=== PATIENT | female | born 1985 | race Caucasian/White ===

== ENCOUNTER → 2023-04-22 08:24 | Outpatient (BNVA) | payer MEDICAID, SELFPAY | PROVIDERS: Family Provider Family Medicine; PCP Family Medicine; Referring Provider Nurse Practitioner Family; Visit Provider Surgery | DX: R10.13 Epigastric pain (principal) | CPT/HCPCS: 99204 ==

== ENCOUNTER 2023-05-16 08:47 | Day surgery (SDC) | payer OTHER, MEDICAID, SELFPAY ==
[2023-05-16 09:08] VITALS: BP 94/59; PULSE 85; RESP 16; TEMP 36.7; O2SAT 100; BMI 21.2
--- NOTE | 2023-05-16 09:19 | ANES.PREANE2 ---
Pre-Anesthetic Assessment Height/Weight: Height 1.5 m Weight 47.627 kg Temp Pulse Resp BP Pulse Ox O2 Del Method 98.0 F 85 16 94/59 100 Room Air 05/16/23 09:08 05/16/23 09:08 05/16/23 09:08 05/16/23 09:08 05/16/23 09:08 05/16/23 09:08 Preop Diagnosis: Epigastric Pain Operation Date: 05/16/23 09:45 Proposed Procedures p EGD 28366, R10.13(Not Applicable) - Cesar Crow DO Familial anesthetic complications: none Last intake: Intake Last Liquid Date 05/15/232349 Last Solid Date 05/15/232349 Social Tobacco (smoked today 10 years 1ppd) and No alcohol denies recreational drug use. Exam alert, oriented x 3, clear to auscultation bilaterally and regular rate & rhythm Airway Submandibular: within normal limits Cervical ROM: within normal limits Mallampati: Class II Dentition: chipped Pulmonary None reported CV/HEM None reported None reported Hepatic None reported GI Gastroesophageal Reflux Disease abdominal pain Metabolic None reported Musc/skel None reported Neuropsych Anxiety Anesthetic Plan ASA status: 2 Anesthesia: MAC Medications/Allergies Home Medications Medication Instructions Recorded Confirmed Last Taken Type ondansetron HCl 4 mg tablet 4 mg PO Q8H PRN Nausea 04/22/23 05/16/23 05/07/23 History pantoprazole 40 mg tablet,delayed 40 mg PO BID 6 weeks #84 tabs 04/22/23 05/16/23 05/14/23 Rx release (Protonix) Allergies Allergy/AdvReac Type Severity Reaction Status Date / Time sulfa Allergy was told Uncoded 05/16/23 09:08 never to take PFSH Anesthesia Family History Mother Acid reflux Social History Smoking and tobacco/nicotine status: current every day tobacco/nicotine user cigarettes Substance/Drug Use: current Substance/Drug use frequency: Special occassions/opportunity only Data Anesthesia Cardiac Studies: No Data to Display
[2023-05-16] MEDS: sodium chloride 0.9% 1,000 ML 30 ML IV (09:29)
[2023-05-16 09:33] LABS: OR HCG Qualitative Urine Negative (Negative)
--- NOTE | 2023-05-16 09:49 | W.PM.OPSUD ---
Surgery/Procedure H&P Update DATE OF PROCEDURE: May 16, 2023 DATE H&P PERFORMED: 04/22/23 H&P UPDATE INFORMATION: I have reviewed H&P completed within last 30 days, I have examined patient prior to procedure and No changes to prior documentation PREOP DIAGNOSIS: Epigastric Pain PLANNED PROCEDURE: Operation Date: 05/16/23 09:45 Proposed Procedures p EGD 11387, R10.13(Not Applicable) - Cesar Crow DO
[2023-05-16 09:59] VITALS: BP 90/56; PULSE 62; RESP 14; TEMP 36.4; O2SAT 100
[2023-05-16 10:10] VITALS: BP 103/73; PULSE 76; RESP 18; O2SAT 100
[2023-05-16 10:19] VITALS: BP 96/63; PULSE 67; RESP 18; O2SAT 100
--- NOTE | 2023-05-16 12:41 | ANE.PACU2 ---
Inpatient post-anesthesia follow up: Airway intact: Yes Vital signs: Temperature 97.5 F Pulse Rate 67 Respiratory Rate 18 Blood Pressure 96/63 Pulse Oximetry 100 Oxygen Delivery Me thod Room Air Oxygen Flow Rate 4 Fraction of Inspir ed Oxygen Hydration adequate: Yes Nausea and vomiting: No Pain level: 2 Mental status: Baseline
== END 2023-05-16 10:27 | disposition home or self-care (01) ==
PROVIDERS: Anesthesiology; Family Provider Family Medicine; PCP Family Medicine; Visit Provider Surgery
PROC: 0DJ08ZZ Inspection of Upper Intestinal Tract, Via Natural or Artificial Opening Endoscopic (ICD-10-PCS; CPT 43235; principal; 2023-05-16 09:45)
DX: R10.13 Epigastric pain (principal); K21.9 Gastro-esophageal reflux disease without esophagitis; F17.210 Nicotine dependence, cigarettes, uncomplicated; K29.50 Unspecified chronic gastritis without bleeding
CPT/HCPCS: 43239; 81025; 84703; 88305; 88342; J2704; J7030

== ENCOUNTER 2023-06-05 07:07 | Outpatient (CLI) | payer OTHER, MEDICAID, SELFPAY ==
--- NOTE | 2023-06-05 07:15 | US_ITS ---
WS: [id number] RIGHT UPPER QUADRANT ULTRASOUND HISTORY: epigastric pain COMPARISON: None available. Liver: 15.5 cm in length. Normal size liver and echogenicity. No bile duct dilatation or mass. Portal Vein: Normal hepatopetal flow with monophasic waveform. Gallbladder: Normally distended gallbladder with no stones or wall thickening. CBD: 0.1 cm Pancreas: Normal size and echogenicity. Right kidney: 10.1 cm in length. Normal size and echogenicity. No hydronephrosis or mass. Aorta and IVC: Unremarkable abdominal aorta and IVC. No ascites. IMPRESSION: Normal RIGHT upper quadrant ultrasound.
== END 2023-06-05 07:08 | disposition home or self-care (01) ==
LOC: RAD 07:07
PROVIDERS: Family Provider Family Medicine; PCP Family Medicine; Visit Provider Surgery
DX: R10.13 Epigastric pain (principal)
CPT/HCPCS: 76705

== ENCOUNTER 2023-07-02 07:52 | Outpatient (CLI) | payer OTHER, MEDICAID, SELFPAY ==
--- NOTE | 2023-07-02 08:00 | NM_ITS ---
WS: [id number] NUCLEAR MEDICINE HIDA SCAN CLINICAL INFORMATION: epigastric pain TECHNIQUE: Following intravenous administration of 7.2 mCi of technetium 99m mebrofenin, images of th e abdomen were obtained over the course of 60 minutes. Next, gallbladder ejection fraction was determ ined by obtaining preprandial and one-hour postprandial images of the gallbladder following oral karl stion of Ensure. COMPARISON: Ultrasound 06/05/2023 FINDINGS: Hepatomegaly. Normal hepatic uptake at 5 minutes. Normal hepatic excretion. Gallbladder is visualized by 15 minutes. Normal common bile duct and small bowel activity. No evidence of acute cholecystitis. Gallbladder ejection fraction 59% within normal limits. No evidence of chronic cholecystitis. IMPRESSION: 1. No evidence of acute or chronic cholecystitis. 2. Gallbladder ejection fraction 59% within normal limits.
== END 2023-07-02 07:53 | disposition home or self-care (01) ==
PROVIDERS: PCP Family Medicine; Visit Provider Surgery
DX: R10.13 Epigastric pain (principal)
CPT/HCPCS: 78227; A9537

== ENCOUNTER → 2024-06-01 11:23 | Outpatient (BNVA) | payer MEDICAID, SELFPAY | PROVIDERS: PCP Family Medicine | DX: M19.012 Primary osteoarthritis, left shoulder (principal) | CPT/HCPCS: 73030 ==

== ENCOUNTER 2024-12-03 18:36 | Emergency (ER) | payer MEDICAID, SELFPAY ==
[2024-12-03 18:41] VITALS: BP 104/68; PULSE 78; RESP 17; TEMP 37.1; O2SAT 97; BMI 23.0
--- NOTE | 2024-12-03 19:20 | ED_ITS ---
HPI - Animal Bite General: Chief Complaint: Animal Bite Stated Complaint: rabies shot Time Seen by Provider: 12/03/24 19:09 Source: patient Mode of arrival: ambulatory Limitations: no limitations History of Present Illness: 31-year-old female states that she has a barn cat that was concerned could have rabies she states that health department has a cat the testing will be back till Friday she states she has had close exposure but has not had any bites denies any injuries. Associated symptoms: Deny chills, fever(s) or headache(s) Related Data Previous Rx's ?Medication ?Instructions ?Recorded ondansetron 8 mg disintegrating 8 mg PO TID PRN nausea and 05/16/23 tablet vomiting #20 tabs cyclobenzaprine 5 mg tablet 5 mg PO TID PRN muscle spa sm #30 06/01/24 tabs Allergies Allergy/AdvReac Type Severity Reaction Status Date / Time sulfa Allergy was told Uncoded 06/01/24 11:20 never to take Review of Systems Const: Denies: fever(s), chills or body aches ENMT: Denies: throat pain or dental pain Card: Denies: chest pain Resp: Denies: dyspnea GI: Denies: abdominal pain, nausea, vomiting or diarrhea Musc: Denies: neck pain or back pain Skin/Breast: Denies: rash Neuro: Denies: headache(s) PFSH ED PFSH: Family History Mother Acid reflux Social History Smoking and tobacco/nicotine status: current every day tobacco/nicotine user cigarettes Substance/Drug Use: current Substance/Drug use frequency: Special occa ssions/opportunity only Physical Exam Const: COMMON NORMALS: no acute distress, patient oriented x3 and healthy appearing HENMT: COMMON NORMALS: normocephalic and atraumatic HEAD & SCALP: normocephalic and atraumatic Eye: COMMON NORMALS: conjunctivae normal CONJUNCTIVA: Yes conjunctivae normal Neck/C-Spine: COMMON NORMALS: full ROM and supple Chest: COMMONS NORMALS: normal inspection of the chest Resp: COMMON NORMALS: normal respiratory effort Cardio: COMMON NORMALS: regular rate RATE: regular rate Extremity: COMMON NORMALS: normal to inspection and full ROM Neuro: COMMON NORMALS: patient oriented x3, moves all extremities and no focal motor deficits Psych: COMMON NORMALS: mental status grossly normal, Normal thought process present and cooperative THOUGHT PROCESS: Normal thought process present Skin: COMMON NORMALS: no rashes or lesions noted and no wounds GENERAL SKIN EXAM: no rashes or lesions noted Course Vital Signs: Vital signs: Vital Signs Temperature 98.7 F 12/03/24 18:41 Pulse Rate 78 12/03/24 18:41 Respiratory Rate 17 12/03/24 18:41 Blood Pressure 104/68 12/03/24 18:41 Pulse Oximetry 97 12/03/24 18:41 Oxygen Delivery Me thod Room Air 12/03/24 18:41 MDM - Animal Bite Medical Decision Making Patient presents here with possible rabies exposure we will start her on the rabies prophylaxis vaccine immunoglobulin she is stable for discharge return scheduled Medical Records I reviewed the patient's medical records. No radiology studies performed this visit Discharge Plan Discharge Patient Disposition: Home Clinical Impression: Exposure to rabies Condition: Stable Prescriptions: No Action cyclobenzaprine 5 mg tablet 5 mg PO TID PRN (Reason: muscle spasm) Qty: 30 0RF ondansetron 8 mg tablet,disintegrating 8 mg PO TID PRN (Reason: nausea and vomiting) Qty: 20 1RF Discharge Orders: Discharge ED (Routine); Ordered 12/03/24 Ordered By: Parker Alarcon Referrals: Gabbi Cao MD [Primary Care Provider, [facility]] - 4-7 days Discharge Diet: Advance as tolerated Discharge Activity: Resume usual activity Patient Instructions: Rabies (ED) Print Language: Hungarian Coding Level of Care Code ED Form Setter/Driver for Kalli Guerrero
--- NOTE | 2024-12-03 20:38 | PC.NURSE ---
Pt refused rabies vaccine at this time. States she wants to wait until testing come back on the cat first. Denies open wounds or bites.
== END 2024-12-03 20:20 | disposition home or self-care (01) ==
PROVIDERS: Emergency Provider Emergency Medicine; PCP Family Medicine
DX: F17.210 Nicotine dependence, cigarettes, uncomplicated (principal)
CPT/HCPCS: 99281

== ENCOUNTER → 2025-02-11 14:58 | Outpatient (BNVA) | payer MEDICAID, SELFPAY | PROVIDERS: PCP Family Medicine; Visit Provider Nurse Practitioner Women's Health | DX: Z12.4 Encounter for screening for malignant neoplasm of cervix (principal) | CPT/HCPCS: 87624 ==

== ENCOUNTER → 2025-03-28 12:58 | Outpatient (BNVA) | payer MEDICAID, SELFPAY | PROVIDERS: PCP Family Medicine; Visit Provider Obstetrics & Gynecology | DX: N92.6 Irregular menstruation, unspecified (principal); N92.0 Excessive and frequent menstruation with regular cycle | CPT/HCPCS: 84702 ==